=== PATIENT | female | born 1975 | race Caucasian/White ===

== ENCOUNTER 2017-01-12 15:45 | Emergency (ER) | payer BC ==
[2017-01-12] MEDS ORDERED: Amoxicill/Clav 875/125mg Tab 1 TAB TAB PO ONE ×2 (15:59→16:40)
[2017-01-12] MEDS ORDERED: Naproxen Tab 500 MG TAB PO ONE ×3 (15:59→16:41)
[2017-01-12] MEDS ORDERED: Amoxicill/Clav 875/125mg Tab 1 TAB TAB PO SCH (16:00)
[2017-01-12 16:09] VITALS: RESP 14; TEMP 97.9
[2017-01-12] MEDS ORDERED: HYDROcodone-APAP 10 MG-325 MG TABLET PO SCH (16:15)
--- NOTE | 2017-01-12 16:15 | PDOC ---
Sore Throat/Dental Pain HPI - General Chief Complaint: Nasal/Mouth Problem /Injury Stated Complaint: RIGHT LOWER MOLAR PAIN Date Seen by Provider: 01/12/17 Time Seen by Provider: 16:06 - History of Present Illness Initial Comments: Patient is a very nice 41-year-old woman who presents to the emergency department with pain in the tooth. She has had some caries in that tooth but has not had any abscess or substantial issues with it but starting today she has noticed increased pain and a lot of discomfort there. It is a bottom molar on the right hand side - Patient Home Medications Home Medications: Home Medications Amox Tr/Potassium Clavulanate [Augmentin 875-125 Tablet] 1 each PO BID #14 tablet 01/12/17 Hydrocodone Bit/Acetaminophen [[place] 10-325 Tablet] 1 tab PO Q6H PRN #14 tab 10/26 Naproxen 500 mg PO BID PRN #30 tab 01/12/17 - Patient Allergies Allergies/Adverse Reactions: Allergies Allergy/AdvReac Type Severity Reaction Status Date / Time No Known Allergies Allergy Unverified 01/12/17 16:03 Past Medical History Past Medical History Reviewed: Reviewed - No Changes ROS - Limitations ROS Limitations: No Limitations Constitution: REPORTS: Denies Symptoms Cardiovascular: REPORTS: Denies Cardiac Symptoms Respiratory: REPORTS: Denies Resp Symptoms Sore Throat/Dental Pain Exam - General Appearance General Appearance: REPORTS: Alert, Cooperative, No Acute Distress - HEENT Head / Face: POSITIVE: Atraumatic, No Facial Swelling Eyes: POSITIVE: Inspection Normal Dental: POSITIVE: Other (Dental caries and some swelling around a right lower molar) Sore Throat/Dental Progress - Patient's Progress MDM / ED Course: The looks of this patient clearly has an acute dental infection likely an early abscess or a go ahead and get her put on some Augmentin and some naproxen also encouraged trying to avoid narcotic medications by did prescribe her a few in case she is unable to sleep at night. She knows that she has to get into a dentist right away as is the only definitive treatment she'll be able to get for her symptoms. Patient Care Time - Estimated PCT Patient Care Time (In Minutes): 25 Discharge Clinical Impression: Dental caries Condition: Fair Prescriptions / Orders: Amox Tr/Potassium Clavulanate [Augmentin 875-125 Tablet] 1 each PO BID #14 tablet Naproxen 500 mg PO BID PRN #30 tab PRN Reason: Pain Hydrocodone Bit/Acetaminophen [[place] 10-325 Tablet] 1 tab PO Q6H PRN #14 tab PRN Reason: Pain Patient Instructions Given at Discharge: Toothache (ED) Additional Instructions: Take your medications as prescribed Follow-up with a dentist as soon as possible Return here if you have any substantial worsening or with any other concerns or questions Follow Up With: NONE,NONE [Primary Care Provider] -
[2017-01-12] MEDS ORDERED: HYDROcodone-APAP 10 MG-325 MG TABLET PO ONE (16:40)
== END 2017-01-12 16:42 | disposition home or self-care (01) ==
LOC: ER 15:45
DX: K02.9 Dental caries, unspecified (principal); K08.89 Other specified disorders of teeth and supporting structures
CPT/HCPCS: 99282